=== PATIENT | female | born 1980 | race Caucasian/White ===

== ENCOUNTER 2020-12-30 08:59 | Day surgery (SDC) | payer BC, OTHER ==
[2020-12-30] VITALS (8 sets, daily range): BP systolic 113–129; BP diastolic 58–82
[~2020-12-30] VITALS: Ht 157.5 cm; Wt 82.2 kg
[2020-12-30] MEDS ORDERED: ZOLP10TA2 PO (09:09)
--- OUTSIDE RECORDS SUMMARY | 2020-12-30 09:14 | CCD ---
Author Author [facility] Organization [facility] Address Unknown Phone Unavailable Care Team Providers Care Lidder Name Role Phone Viktor'kaila, A Nimesh PA Unavailable Unavailable O'kaila, A Nimesh PA Unavailable Unavailable O'kaila, A Nimesh PA Unavailable Unavailable O'kaila, A Nimesh PA Unavailable Unavailable O'kaila, A Nimesh PA Unavailable Unavailable O'kaila, A Nimesh PA Unavailable Unavailable O'kaila, A Nimesh PA Unavailable Unavailable O'kaila, A Nimesh PA Unavailable Unavailable O'kaila, A Nimesh PA Unavailable Unavailable O'kaila, A Nimesh PA Unavailable Unavailable O'kaila, A Nimesh PA Unavailable Unavailable O'kaila, A Nimesh PA Unavailable Unavailable O'kaila, A Nimesh PA Unavailable Unavailable O'kaila, A Nimesh PA Unavailable Unavailable O'kaila, A Nimesh PA Unavailable Unavailable O'kaila, A Nimesh PA Unavailable Unavailable O'kaila, A Nimesh PA Unavailable Unavailable O'kaila, A Nimehs PA Unavailable Unavailable O'kaila, A Nimesh PA Unavailable Unavailable O'kaila, A Nimesh PA Unavailable Unavailable O'kaila, A Nimesh PA Unavailable Unavailable O'kaila, A Nimesh PA Unavailable Unavailable O'kaila, A Nimesh PA Unavailable Unavailable O'kaila, A Nimesh PA Unavailable Unavailable O'kaila, A Nimesh PA Unavailable Unavailable O'kaila, A Nimesh PA Unavailable Unavailable O'kaila, A Nimesh PA Unavailable Unavailable O'kaila, A Nimesh PA Unavailable Unavailable O'kaila, A Nimesh PA Unavailable Unavailable O'kaila, A Nimesh PA Unavailable Unavailable O'kaila, A Nimesh PA Unavailable Unavailable O'kaila, A Nimesh PA Unavailable Unavailable O'kaila, A Nimesh PA Unavailable Unavailable Re-disclosure Warning The records that you are about to access may contain information from federally-assisted alcohol or drug abuse programs. If such information is present, then the following federally mandated warning applies: This information has been disclosed to you from records protected by federal confidentiality rules (42 CFR part 2). The federal rules prohibit you from making any further disclosure of this information unless further disclosure is expressly permitted by the written consent of the person to whom it pertains or as otherwise permitted by 42 CFR part 2. A general authorization for the release of medical or other information is NOT sufficient for this purpose. The Federal rules restrict any use of the information to criminally investigate or prosecute any alcohol or drug abuse patient.The records that you are about to access may contain highly sensitive health information, the redisclosure of which is protected by Article 27-F of the [facility] Public Health law. If you continue you may have access to information: Regarding HIV / AIDS; Provided by facilities licensed or operated by the [facility] Office of Mental Health; or Provided by the [facility] Office for People With Developmental Disabilities. If such information is present, then the following [facility] mandated warning applies: This information has been disclosed to you from confidential records which are protected by state law. State law prohibits you from making any further disclosure of this information without the specific written consent of the person to whom it pertains, or as otherwise permitted by law. Any unauthorized further disclosure in violation of state law may result in a fine or fdc sentence or both. A general authorization for the release of medical or other information is NOT sufficient authorization for further disc losure. Family History Family Member Name Family Member Gender Family Member Status Date o f Status Description Data Source(s) Unknown Male Problem [facility] ([facility]) Unknown Unknown Problem [facility] ([facility]) Unknown Unknown Problem [facility] ([facility] Unknown Unknown Problem [facility] ([facility]) Unknown Unknown Problem [facility] ([facility]) Unknown Unknown Problem [facility] ([facility]) brother x 2 Unknown Male Encounters Encounter Providers Location Date Indications Data Source(s ) Outpatient Attender: Nimesh CHANG [facility] 07/10/2020 10:00:00 AM EDT MEDENT ([facility]) Outpatient Attender: Nimesh CHANG [facility] 04/02/2020 11:00:00 AM EDT MEDENT ([facility]) Outpatient Attender: Nimesh CHANG [facility] 03/18/2020 09:20:00 AM EDT MEDENT ([facility]) Outpatient Attender: Nimesh CHANG [facility] 02/19/2020 01:00:00 PM EDT MEDENT ([facility]) Medications Medication Brand Name Start Date Product Form Dose Route Admi nistrative Instructions Pharmacy Instructions Status Indications Reaction Description Data Source(s) 10 mg 12/05/2020 12:00:00 AM EST tablet 30 TAKE ONE TABLET BY MOUTH AT BEDTIME NEEDED TO HELP SLEEPING HABITS MAXIMUM DAILY DOSE = 1 TABLET TAKE ONE TABLET BY MOUTH AT BEDTIME NEEDED TO HELP SLEEPING HABITS MAXIMUM DAILY DOSE = 1 TABLET SOLD: 12/05/2020 [facility] 25 mg 12/03/2020 12:00:00 AM EST capsule,extended releas e 24hr 30 TAKE ONE CAPSULE BY MOUTH EVERY DAY. MAX DAILY DOSE= ONE CAPSULE TAKE ONE CAPSULE BY MOUTH EVERY DAY. MAX DAILY DOSE= ONE CAPSULE SOLD: 12/04/2020 [facility] 5 mg 12/03/2020 12:00:00 AM EST tablet 30 TAKE ONE TABLET BY MOUTH IN THE AFTERNOON BEFORE 3PM. MAX DAILY DOSE= ONE TABLET . [id number]:[id number] TAKE ONE TABLET BY MOUTH IN THE AFTERNOON BEFORE 3PM. MAX DAILY DOSE= ONE TABLET . [id number]:[id number] SOLD: 12/04/2020 [facility] 10 mg 11/03/2020 12:00:00 AM EST tablet 30 TAKE ONE TABLET BY MOUTH AT BEDTIME NEEDED TO HELP SLEEPING HABITS MAXIMUM DAILY DOSE = 1 TABLET TAKE ONE TABLET BY MOUTH AT BEDTIME NEEDED TO HELP SLEEPING HABITS MAXIMUM DAILY DOSE = 1 TABLET SOLD: 11/03/2020 [facility] 25 mg 11/03/2020 12:00:00 AM EST capsule,extended releas e 24hr 25 TAKE ONE CAPSULE BY MOUTH EVERY DAY MAXIMUM DAILY DOSE = 1 TABLET TAKE ONE CAPSULE BY MOUTH EVERY DAY MAXIMUM DAILY DOSE = 1 TABLET SOLD: 11/11/2020 [facility] 5 mg 11/03/2020 12:00:00 AM EST tablet 30 TAKE ONE TABLET BY MOUTH IN THE AFTERNOON. DO NOT TAKE AFTER 3PM MAXIMUM DAILY DOSE = 1 TAKE ONE TABLET BY MOUTH IN THE AFTERNOON. DO NOT TAKE AFTER 3PM MAXIMUM DAILY DOSE = 1 SOLD: 11/03/2020 [facility] 25 mg 09/30/2020 12:00:00 AM EST capsule,extended releas e 24hr 30 TAKE ONE CAPSULE BY MOUTH EVERY DAY MAXIMUM DAILY DOSE = 1 TABLETS TAKE ONE CAPSULE BY MOUTH EVERY DAY MAXIMUM DAILY DOSE = 1 TABLETS SOLD: 11/11/2020 [facility] 10 mg 09/30/2020 12:00:00 AM EST tablet 30 TAKE 1 TABLET BY MOUTH 1 HOUR BEFORE BEDTIME NEEDED TO HELP SLEEPING HABITS MAXIMUM DAILY DOSE = ONE TABLET TAKE 1 TABLET BY MOUTH 1 HOUR BEFORE BED TIME NEEDED TO HELP SLEEPING HABITS MAXIMUM DAILY DOSE = ONE TABLET SOLD: 10/02/2020 [facility] 5 mg 09/30/2020 12:00:00 AM EST tablet 30 TAKE ONE TABLET BY MOUTH EVERY AFTERNOON, DO NOT TAKE AFTER 3:00PM MAXIMUM DAILY DOSE = 1 TABLET TAKE ONE TABLET BY MOUTH EVERY AFTERNOON, DO NOT TAKE AFTER 3:00PM MAXIMUM DAILY DOSE = 1 TABLET SOLD: 10/02/2020 [facility] 10 mg 08/29/2020 12:00:00 AM EDT tablet 30 TAKE 1 TABLET BY MOUTH 1 HOUR BEFORE BEDTIME NEEDED TO HELP SLEEPING HABITS MAXIMUM DAILY DOSE = 1 TABLET TAKE 1 TABLET BY MOUTH 1 HOUR BEFORE BEDTIME NEEDED TO HELP SLEEPING HABITS MAXIMUM DAILY DOSE = 1 TABLET SOLD: 08/31/2020 [facility] 25 mg 08/29/2020 12:00:00 AM EDT capsule,extended releas e 24hr 28 TAKE ONE CAPSULE BY MOUTH EVERY DAY MAXIMUM DAILY DOSE = 1 CAPSULE TAKE ONE CAPSULE BY MOUTH EVERY DAY MAXIMUM DAILY DOSE = 1 CAPSULE SOLD: 09/04/2020 [facility] 5 mg 08/29/2020 12:00:00 AM EDT tablet 30 TAKE 1 TABLET BY MOUTH IN THE AFTERNOON, DO NOT TAKE AFTER 3:00PM MAXIMUM DAILY DOSE = 1 TABLET TAKE 1 TABLET BY MOUTH IN THE AFTERNOON, DO NOT TAKE AFTER 3:00PM MAXIMUM DAILY DOSE = 1 TABLET SOLD: 08/31/2020 [facility] 10 mg 08/02/2020 12:00:00 AM EDT tablet 30 TAKE 1 TABLET BY MOUTH 1 HOUR BEFORE AT BEDTIME NEEDED TO HELP SLEEPING HABITS MAXIMUM DAILY DOSE = 1 TABLET TAKE 1 TABLET BY MOUTH 1 HOUR BEFORE AT BEDTIME NEEDED TO HELP SLEEPING HABITS MAXIMUM DAILY DOSE = 1 TABLET SOLD: 08/04/2020 [facility] 25 mg 08/01/2020 12:00:00 AM EDT capsule,extended releas e 24hr 30 TAKE ONE CAPSULE BY MOUTH EVERY DAY MAXIMUM DAILY DOSE = 1 CAPSULE TAKE ONE CAPSULE BY MOUTH EVERY DAY MAXIMUM DAILY DOSE = 1 CAPSULE SOLD: 08/01/2020 [facility] 5 mg 08/01/2020 12:00:00 AM EDT tablet 30 TAKE 1 TABLET BY MOUTH DAILY IN THE AFTERNOON - DO NOT TAKE AFTER 3:00PM MAXIMUM DAILY DOSE = 1 TABLET TAKE 1 TABLET BY MOUTH DAILY IN THE AFTERNOON - DO NOT TAKE AFTER 3:00PM MAXIMUM DAILY DOSE = 1 TABLET SOLD: 08/01/2020 [facility] Xh[facility] Xhance 07/18/2020 12:00:00 AM EDT active MEDENT ([facility], ) 93 mcg/actuation 07/18/2020 12:00:00 AM EDT aerosol breath a ctivated 16 USE 2 SPRAYS IN EACH NOSTRIL ONCE DAILY USE 2 SPRAYS IN EACH NOSTRIL ONCE DAILY SOLD: 07/20/2020 [facility] 37.5 mg 07/10/2020 12:00:00 AM EDT capsule,extended releas e 24hr 90 TAKE ONE CAPSULE BY MOUTH EVERY DAY TAKE ONE CAPSULE BY MOUTH EVERY DAY SOLD: 07/20/2020 [facility] cetirizine hydrochloride 10 MG Oral Tablet [Zyrtec] Zyrtec A llergy 07/10/2020 12:00:00 AM EDT ORAL active M EDENT ([facility]) 25 mg 07/04/2020 12:00:00 AM EDT capsule,extended releas e 24hr 30 TAKE ONE CAPSULE BY MOUTH EVERY DAY MAXIMUM DAILY DOSE = 1 CAPSULE TAKE ONE CAPSULE BY MOUTH EVERY DAY MAXIMUM DAILY DOSE = 1 CAPSULE SOLD: 07/04/2020 [facility] 5 mg 07/04/2020 12:00:00 AM EDT tablet 30 TAKE 1 TABLET BY MOUTH IN THE AFTERNOON DO NOT TAKE AFTER 3PM MAXIMUM DAILY DOSE = ONE TABLET TAKE 1 TABLET BY MOUTH IN THE AFTERNOON DO NOT TAKE AFTER 3PM MAXIMUM DAILY DOSE = ONE TABLET SOLD: 07/04/2020 [facility] 10 mg 07/04/2020 12:00:00 AM EDT tablet 30 TAKE 1 TABLET BY MOUTH 1 HOUR BEFORE BEDTIME NEEDED TO HELP SLEEPING HABITS MAXIMUM DAILY DOSE = ONE TABLET TAKE 1 TABLET BY MOUTH 1 HOUR BEFORE BED TIME NEEDED TO HELP SLEEPING HABITS MAXIMUM DAILY DOSE = ONE TABLET SOLD: 07/04/2020 [facility] 1 mg 05/30/2020 12:00:00 AM EDT tablet 56 TAKE ONE TABLET BY MOUTH TWICE A DAY TAKE ONE TABLET BY MOUTH TWICE A DAY SOLD: 06/02/2020 [facility] 10 mg 05/30/2020 12:00:00 AM EDT tablet 30 TAKE ONE TABLET BY MOUTH EVERY DAY 1 HOUR BEFORE BEDTIME MAXIMUM DAILY DOSE = ONE TABLET TAKE ONE TABLET BY MOUTH EVERY DAY 1 HOUR BEFORE BEDTIME MAXIMUM DAILY DOSE = ONE TABLET SOLD: 06/02/2020 [facility] 5 mg 05/30/2020 12:00:00 AM EDT tablet 30 TAKE ONE TABLET BY MOUTH EVERY DAY IN THE AFTERNOON BEFORE 3:00PM MAXIMUM DAILY DOSE = ONE TABLET TAKE ONE TABLET BY MOUTH EVERY DAY IN THE AFTERNOON BEFORE 3:00PM MAXIMUM DAILY DOSE = ONE TABLET SOLD: 06/02/2020 [facility] 25 mg 05/30/2020 12:00:00 AM EDT capsule,extended releas e 24hr 30 TAKE ONE CAPSULE BY MOUTH EVERY DAY MAXIMUM DAILY DOSE = 1 CAPSULE TAKE ONE CAPSULE BY MOUTH EVERY DAY MAXIMUM DAILY DOSE = 1 CAPSULE SOLD: 06/02/2020 [facility] 10 mg 05/02/2020 12:00:00 AM EDT tablet 30 TAKE 1 TABLET BY MOUTH 1 HOUR BEFORE BEDTIME NEEDED TO HELP SLEEPING HABITS MAXIMUM DAILY DOSE = 1 TABLET TAKE 1 TABLET BY MOUTH 1 HOUR BEFORE BEDTIME NEEDED TO HELP SLEEPING HABITS MAXIMUM DAILY DOSE = 1 TABLET SOLD: 05/02/2020 [facility] 5 mg 05/01/2020 12:00:00 AM EDT tablet 30 TAKE 1 TABLET BY MOUTH EVERY AFTER NOON DO NOT TAKE AFTER 3PM MAXIMUM DAILY DOSE = 1 TABLET TAKE 1 TABLET BY MOUTH EVERY AFTER NOON DO NOT TAKE AFTER 3PM MAXIMUM DAILY DOSE = 1 TABLET SOLD: 05/02/2020 [facility] 25 mg 05/01/2020 12:00:00 AM EDT capsule,extended releas e 24hr 30 TAKE ONE CAPSULE BY MOUTH EVERY DAY MAXIMUM DAILY DOSE = 1 CAPSULE TAKE ONE CAPSULE BY MOUTH EVERY DAY MAXIMUM DAILY DOSE = 1 CAPSULE SOLD: 05/02/2020 [facility] 24 HR Amphetamine aspartate 6.25 MG / Am phetamine Sulfate 6.25 MG / Dextroamphetamine saccharate 6.25 MG / Dextroamphetamine Sulfate 6.25 MG Extended Release Oral Capsule [Adderall] Adderall XR 04/02/2020 12:00:00 AM EDT ORAL active MEDENT ( [facility]) 25 mg 04/02/2020 12:00:00 AM EDT capsule,extended releas e 24hr 30 TAKE ONE CAPSULE BY MOUTH EVERY DAY MAXIMUM DAILY DOSE = 1 CAPSULE TAKE ONE CAPSULE BY MOUTH EVERY DAY MAXIMUM DAILY DOSE = 1 CAPSULE SOLD: 04/05/2020 [facility] Doxycycline Monohydrate 100 MG Oral Tablet Doxycycline Monoh ydrate 03/28/2020 12:00:00 AM EDT ORAL completed MED[facility] ([facility]) 100 mg 03/28/2020 12:00:00 AM EDT tablet 20 TAKE ONE TABLET BY MOUTH TWICE A DAY UNTIL GONE TAKE ONE TABLET BY MOUTH TWICE A DAY UNTIL GONE SOLD: 03/28/2020 [facility] cefdinir 300 MG Oral Capsule Cefdinir 03/26/2020 12:00:00 AM EDT ORAL completed [facility] ([facility]) 10 mg 03/26/2020 12:00:00 AM EDT tablet 30 TAKE ONE TABLET BY MOUTH ONE HOUR BEFORE BEDTIME NEEDED TO HELP SLEEPING MAXIMUM DAILY DOSE = 1 TABLET TAKE ONE TABLET BY MOUTH ONE HOUR BEFORE BEDTIME NEEDED TO HELP SLEEPING MAXIMUM DAILY DOSE = 1 TABLET SOLD: 03/27/2020 [facility] 1 mg 03/18/2020 12:00:00 AM EDT tablet 56 TAKE ONE TABLET BY MOUTH TWICE A DAY TAKE ONE TABLET BY MOUTH TWICE A DAY SOLD: 03/18/2020 [facility] 12 HR cetirizine hydrochloride 5 MG / Ps eudoephedrine Hydrochloride 120 MG Extended Release Oral Tablet [Zyrtec-D] Zyrtec-D Allergy & Congestion 03/18/2020 12:00:00 AM EDT ORAL completed MED[facility] ([facility]) Fluticasone Propionate Fluticasone Propionate 03/18/2020 12:00:00 AM E DT active MEDENT ([facility]) [employer] Jaswant Chant[employer] Jaswant 12:00:00 AM EDT ORAL active [facility] ([facility]) 5-120 mg 03/18/2020 12:00:00 AM EDT tablet extended release 12 hr 20 TAKE ONE TABLET BY MOUTH EVERY 12 HOURS TAKE ONE TABLET BY MOUTH EVERY 12 HOURS SOLD: 03/18/2020 [facility] 50 mcg/actuation 03/18/2020 12:00:00 AM EDT spray,suspension 16 SPRAY TWO SPRAYS IN EACH NOSTRIL EVERY DAY SPRAY TWO SPRAYS IN EACH NOSTRIL EVERY DAY SOLD: 03/18/2020 [facility] 20 mg 03/17/2020 12:00:00 AM EDT capsule,extended releas e 24hr 30 TAKE ONE CAPSULE BY MOUTH EVERY DAY MAXIMUM DAILY DOSE = 1 TAKE ONE CAPSULE BY MOUTH EVERY DAY MAXIMUM DAILY DOSE = 1 SOLD: 03/18/2020 [facility] 5 mg 03/17/2020 12:00:00 AM EDT tablet 30 TAKE ONE TABLET BY MOUTH EVERY DAY AFTERNOON BY 3PM MAXIMUM DAILY DOSE = 1 TAKE ONE TABLET BY MOUTH EVERY DAY AFTERNOON BY 3PM MAXIMUM DAILY DOSE = 1 SOLD: 03/18/2020 [facility] Triamcinolone Acetonide 1 MG/ML Topical Cream Triamcinolone Acetonide 02/19/2020 12:00:00 AM EDT active MED[facility] ([facility]) 0.1 % 02/19/2020 12:00:00 AM EDT cream 80 APPLY LEAST EFFECTIVE DOSAGE TO AFFECTED AREA ON BILATERAL HANDS TWO TIMES A DAY APPLY LEAST EFFECTIVE DOSAGE TO AFFECTED AREA ON BILATERAL HANDS TWO TIMES A DAY SOLD: 02/19/2020 [facility] 20 mg 02/18/2020 12:00:00 AM EDT capsule,extended releas e 24hr 30 TAKE ONE CAPSULE BY MOUTH EVERY DAY MAXIMUM DAILY DOSE = 1 TAKE ONE CAPSULE BY MOUTH EVERY DAY MAXIMUM DAILY DOSE = 1 SOLD: 02/18/2020 [facility] 5 mg 02/18/2020 12:00:00 AM EDT tablet 30 TAKE ONE TABLET BY MOUTH EVERY DAY BETWEEN NOON AND 3 "PM" MAXIMUM DAILY DOSE = 1 TAKE ONE TABLET BY MOUTH EVERY DAY BETWEEN NOON AND 3 "PM" MAXIMUM DAILY DOSE = 1 SOLD: 02/18/2020 [facility] 10 mg 01/28/2020 12:00:00 AM EDT tablet 30 TAKE ONE TABLET BY MOUTH 1 HOUR BEFORE BEDTIME NEEDED FOR SLEEP MAXIMUM DAILY DOSE = 1 TABLET TAKE ONE TABLET BY MOUTH 1 HOUR BEFORE BEDTIME NEEDED FOR SLEEP MAXIMUM DAILY DOSE = 1 TABLET SOLD: 01/30/2020 [facility] 5 mg 01/21/2020 12:00:00 AM EDT tablet 30 TAKE 1 TABLET BY MOUTH EVERY AFTERNOON MAXIMUM DAILY DOSE = 1 TABLET TAKE 1 TABLET BY MOUTH EVERY AFTERNOON MAXIMUM DAILY DOSE = 1 TABLET SOLD: 01/21/2020 [facility] 20 mg 01/21/2020 12:00:00 AM EDT capsule,extended releas e 24hr 30 TAKE ONE CAPSULE BY MOUTH EVERY DAY MAXIMUM DAILY DOSE = 1 CAPSULE TAKE ONE CAPSULE BY MOUTH EVERY DAY MAXIMUM DAILY DOSE = 1 CAPSULE SOLD: 01/21/2020 [facility] 10 mg 01/01/2020 12:00:00 AM EST tablet 30 ONE TABLET BY MOUTH ONE HOUR BEFORE BEDTIME NEEDED TO HELP WITH SLEEPING MAXIMUM DAILY DOSE = ONE TABLET ONE TABLET BY MOUTH ONE HOUR BEFORE BEDTIME NEEDED TO HELP WITH SLEEPING MAXIMUM DAILY DOSE = ONE TABLET SOLD: 01/01/2020 [facility] 20 mg 12/14/2019 12:00:00 AM EST capsule,extended releas e 24hr 30 TAKE ONE CAPSULE BY MOUTH EVERY DAY MAXIMUM DAILY DOSE = 1 CAPSULE TAKE ONE CAPSULE BY MOUTH EVERY DAY MAXIMUM DAILY DOSE = 1 CAPSULE SOLD: 12/16/2019 [facility] 5 mg 12/14/2019 12:00:00 AM EST tablet 30 TAKE ONE TABLET BY MOUTH EVERY DAY (AFTERNOON NOT AFTER 3PM) MAXIMUM DAILY DOSE = 1 TABLET TAKE ONE TABLET BY MOUTH EVERY DAY (AFTERNOON NOT AFTER 3PM) MAXIMUM DAILY DOSE = 1 TABLET SOLD: 12/16/2019 [facility] 10 mg 11/21/2019 12:00:00 AM EST tablet 30 TAKE 1 TABLET BY MOUTH 1 HOUR BEFORE AT BEDTIME NEEDED TO HELP SLEEPING MAXIMUM DAILY DOSE = 1 TAKE 1 TABLET BY MOUTH 1 HOUR BEFORE AT BEDTIME NEEDED TO HELP SLEEPING MAXIMUM DAILY DOSE = 1 SOLD: 11/27/2019 [facility] 20 mg 11/12/2019 12:00:00 AM EST capsule,extended releas e 24hr 30 TAKE ONE CAPSULE BY MOUTH EVERY DAY MAXIMUM DAILY DOSE = 1 TAKE ONE CAPSULE BY MOUTH EVERY DAY MAXIMUM DAILY DOSE = 1 SOLD: 11/15/2019 [facility] 5 mg 11/12/2019 12:00:00 AM EST tablet 30 TAKE 1 TABLET BY MOUTH IN AFTERNOON BEFORE 3 IN THE EVENING MAXIMUM DAILY DOSE = 1 TAKE 1 TABLET BY MOUTH IN AFTERNOON BEFORE 3 IN THE EVENING MAXIMUM DAILY DOSE = 1 SOLD: 11/15/2019 [facility] Insurance Providers Payer name Policy type / Coverage type Policy ID Covered constitution party ID Covered constitution party's relationship to mckinley Policy [place] Plan Information [employer] [place] PPO 302/307 [id number] Melvin Plan Commercial [id number] Family Dependent [id number] Melvin Plan Commercial [id number] Family Dependent [id number] EMPIRE PLAN [facility] U [id number] Spouse [id number] Melvin Plan Commercial [id number] Family Dependent [id number] Melvin Plan Commercial [id number] Family Dependent [id number] Melvin Plan Commercial [id number] Family Dependent [id number] [facility] Melvin Commercial [id number] Family Depende nt [id number] EXCELLUS BCBS B [id number] P VYS [id number] BCBS/Excellus Commercial Family Dependent Excellus Blue Ppo Health Maintenance Organization (HMO) Family Dependent [employer] [place] [employer] Part B Self BS [place] Trad/MX Commercial Family Dependent BCBS [facility] [phone] [id number] DA [id number] EXCELLUS BCBS P [id number] S B [id number] [employer]BS [place] PPO 302/307 [id number] SP [id number] Social History Code Duration Value Status Description Data Source(s ) Smoking 04/02/2020 12:00:00 AM EDT Patient is a former smoker completed Patient is a former smoker [facility] ([facility]) Vital Signs ID Date Data Source UNK Name Value Range Interpretation Code Description Data Source(s) Body weight 77.112 kg 77.112 kg SAWYER ([facility], ) Body mass index (BMI) [Ratio] 31.1 kg/m2 31.1 k g/m2 SAWYER ([facility], ) Body weight 170.00 [lb_av] 170.00 [lb_av] JUANEN T ([facility], ) Body height 62 [in_i] 62 [in_i] [facility] 5'2" Oxygen saturation in Arterial blood by Pulse oximetry 100 % 100 % MED[facility] ([facility]) Body temperature 98.5 [degF] 98.5 [degF] MED[facility] ([facility]) Respiratory rate 16 /min 16 /min MED[facility] ( [facility]) Heart rate 95 /min 95 /min [facility] ([facility]) Body mass index (BMI) [Ratio] 32.6 kg/m2 32.6 k g/m2 MED[facility] ([facility]) Body weight 178.50 [lb_av] 178.50 [lb_av] MEDEN T ([facility]) Body height 62.0 [in_i] 62.0 [in_i] [facility] ([facility] 5'2" Diastolic blood pressure 80 mm[Hg] 80 mm[Hg] MEDENT ([facility]) Systolic blood pressure 118 mm[Hg] 118 mm[Hg] M EDENT ([facility]) Oxygen saturation in Arterial blood by Pulse oximetry 98 % 98 % MED[facility] ([facility]) Body temperature 98.1 [degF] 98.1 [degF] MED[facility] ([facility]) Respiratory rate 16 /min 16 /min MED[facility] ( [facility]) Heart rate 80 /min 80 /min [facility] ([facility]) Body mass index (BMI) [Ratio] 32.6 kg/m2 32.6 k g/m2 MED[facility] ([facility]) Body weight 178.12 [lb_av] 178.12 [lb_av] MEDEN T ([facility]) Body height 62.0 [in_i] 62.0 [in_i] MED[facility] ([facility]) 5'2" Diastolic blood pressure 86 mm[Hg] 86 mm[Hg] MEDENT ([facility]) Systolic blood pressure 132 mm[Hg] 132 mm[Hg] M EDENT ([facility]) Oxygen saturation in Arterial blood by Pulse oximetry 96 % 96 % MED[facility] ([facility]) Body temperature 98.5 [degF] 98.5 [degF] MEDDANIELE ([facility]) Respiratory rate 18 /min 18 /min [facility] ( [facility]) Heart rate 93 /min 93 /min [facility] ([facility]) Body mass index (BMI) [Ratio] 33.3 kg/m2 33.3 k g/m2 SAWYER ([facility]) Body weight 182.12 [lb_av] 182.12 [lb_av] GABY T ([facility]) Body height 62.0 [in_i] 62.0 [in_i] SAWYER ([facility]) 5'2" Diastolic blood pressure 72 mm[Hg] 72 mm[Hg] SAWYER ([facility]) Systolic blood pressure 120 mm[Hg] 120 mm[Hg] Durga KELLY ([facility])
[2020-12-30] MEDS ORDERED: ONDANSETRON 4MG/2ML VIAL IV ONE (09:30)
[2020-12-30] MEDS ORDERED: NS 1,000 ML IV ONE (09:30)
[2020-12-30] MEDS ORDERED: KETOROLAC 30 MG/ML 1ML VIAL IV ONE (09:30)
[2020-12-30 09:41] LABS: BASO % 0.2 % (0.0-1.0); EOS % 0.1 % (0.0-3.0); HEMATOCRIT 44.8 % (36.0-47.0); HEMOGLOBIN 14.9 g/dl (12.0-15.5); LYMPH # 1.1 10^3/uL (1.5-5.0); LYMPH % 6.6 % (24.0-44.0); MEAN CORPUSCULAR HEMOGLOBIN 30.2 pg (27.0-33.0); MEAN CORPUSCULAR HGB CONC 33.3 g/dl (32.0-36.5); MEAN CORPUSCULAR VOLUME 90.7 fl (80.0-96.0); MONO # 0.6 10^3/uL (0.0-0.8); MONO % 3.8 % (2.0-8.0); NEUTROPHILS # 14.7 10^3/uL (1.5-8.5); PLATELET COUNT, AUTOMATED 327 10^3/uL (150-450); RED BLOOD COUNT 4.94 10^6/uL (4.00-5.40); WHITE BLOOD COUNT 16.5 10^3/uL (4.0-10.0)
--- OUTSIDE RECORDS SUMMARY | 2020-12-30 09:43 | CCD ---
Author Author [facility] Organization [facility] Address Unknown Phone Unavailable Care Team Providers Care Chief Of Anesthesiology Name Role Phone Viktor'kaila, A Nimesh PA Unavailable Unavailable O'kaila, A Nimesh PA Unavailable Unavailable O'kaila, A Nimesh PA Unavailable Unavailable O'kaila, A Nimesh PA Unavailable Unavailable O'kaila, A Nimesh PA Unavailable Unavailable O'kaila, A Nimesh PA Unavailable Unavailable O'kaila, A Nimesh PA Unavailable Unavailable O'kaila, A Nimesh PA Unavailable Unavailable O'kalia, A Nimesh PA Unavailable Unavailable O'kaila, A [...] is protected by Article 27-F of the [facility] Public Health law. If you continue you may have access to information: Regarding HIV / AIDS; Provided by facilities licensed or operated by the [facility] Office of Mental Health; or Provided by the [facility] Office for People With Developmental Disabilities. If such information is present, then the following [facility] mandated warning applies: This information has been [...] law may result in a fine or assisted sentence or both. A general authorization for the release of medical or other information is NOT sufficient authorization for further disc losure. Family History Family Member Name Family Member Gender Family Member Status Date o f Status Description Data Source(s) Unknown Male Problem [facility] ([facility]) Unknown Unknown Problem [facility] ([facility]) Unknown Unknown Problem [facility] ([facility]) Unknown Unknown Problem [facility] ([facility]) Unknown Unknown Problem [facility] ([facility]) Unknown Unknown Problem [facility] ([facility]) brother x 2 Unknown Male Encounters Encounter Providers Location Date Indications Data Source(s ) Outpatient Attender: Nimesh CHANG [facility] 07/10/2020 10:00:00 AM EDT [facility] ([facility]) Outpatient Attender: Nimesh CHANG [facility] 04/02/2020 11:00:00 AM EDT [facility] ([facility]) Outpatient Attender: Nimesh CHANG [facility] 03/18/2020 09:20:00 AM EDT [facility] ([facility]) Outpatient Attender: Nimesh CHANG [facility] 02/19/2020 01:00:00 PM EDT [facility] ([facility]) Medications Medication Brand Name Start Date Product [...] 3PM. MAX DAILY DOSE= ONE TABLET . [id number] TAKE ONE TABLET BY MOUTH IN THE AFTERNOON BEFORE 3PM. MAX DAILY DOSE= ONE TABLET . [id number]:[id number] SOLD: 12/04/2020 [facility] 10 mg [...] DOSE = 1 TABLET SOLD: 08/01/2020 [facility] Xhance Xhance 07/18/2020 12:00:00 AM EDT active MEDENT ([facility], ) 93 mcg/actuation 07/18/2020 12:00:00 AM [...] 12:00:00 AM EDT ORAL active M EDENT ([facility]) 25 mg 07/04/2020 12:00:00 AM EDT capsule,extended [...] DAILY DOSE = 1 CAPSULE SOLD: 05/02/2020 [facility] 24 HR Amphetamine aspartate 6.25 MG / Am phetamine Sulfate 6.25 MG / Dextroamphetamine saccharate 6.25 MG / Dextroamphetamine Sulfate 6.25 MG Extended Release Oral Capsule [Adderall] Adderall XR 04/02/2020 12:00:00 AM EDT ORAL active MED[facility] ( [facility]) 25 mg 04/02/2020 12:00:00 AM EDT capsule,extended releas e 24hr 30 TAKE ONE CAPSULE BY MOUTH EVERY DAY MAXIMUM DAILY DOSE = 1 CAPSULE TAKE ONE CAPSULE BY MOUTH EVERY DAY MAXIMUM DAILY DOSE = 1 CAPSULE SOLD: 04/05/2020 [facility] Doxycycline Monohydrate 100 MG Oral Tablet Doxycycline Monoh ydrate 03/28/2020 12:00:00 AM EDT ORAL completed [facility] ([facility]) 100 mg 03/28/2020 12:00:00 AM EDT tablet 20 TAKE ONE TABLET BY MOUTH TWICE A DAY UNTIL GONE TAKE ONE TABLET BY MOUTH TWICE A DAY UNTIL GONE SOLD: 03/28/2020 [facility] cefdinir 300 MG Oral Capsule Cefdinir 03/26/2020 12:00:00 AM EDT ORAL completed MED[facility] ([facility]) 10 mg 03/26/2020 12:00:00 AM EDT tablet [...] BY MOUTH TWICE A DAY SOLD: 03/18/2020 [facility] 12 HR cetirizine hydrochloride 5 MG / Ps eudoephedrine Hydrochloride 120 MG Extended Release Oral Tablet [Zyrtec-D] Zyrtec-D [facility] 03/18/2020 12:00:00 AM EDT ORAL completed [facility] ([facility]) Fluticasone Propionate Fluticasone Propionate 03/18/2020 12:00:00 AM E DT active MEDENT ([facility]) Chantix Continuing Month Jaswant Chantix Continuing Month Jaswant 12:00:00 AM EDT ORAL active MED[facility] ([facility]) 5-120 mg 03/18/2020 12:00:00 AM EDT tablet [...] Acetonide 02/19/2020 12:00:00 AM EDT active MED[facility] ([facility]) 0.1 % 02/19/2020 12:00:00 AM EDT cream [...] DAILY DOSE = 1 TABLET SOLD: 01/21/2020 [facility] 20 mg 01/21/2020 12:00:00 AM EDT [...] DAILY DOSE = 1 TABLET SOLD: 12/16/2019 [facility] 10 mg 11/21/2019 12:00:00 AM EST [...] Plan Information [place] P[place] 302/307 [id number] HU2 [id number] BCBS EMPIRE PENDING SALE TO [facility] 303/803 [id number] DA [id number] [place] Plan Commercial [id number] Family Dependent [id number] [place] Plan Commercial [id number] Family Dependent [id number] EMPIRE PLAN [facility] U [id number] Spouse [id number] [place] Plan Commercial [id number] Family Dependent [id number] [place] Plan Commercial [id number] Family Dependent [id number] [place] Plan Commercial [id number] Family Dependent [id number] [facility] [place] Commercial [id number] Family Depende nt [id number] EXCELLUS BCBS B [id number] P VYS [id number] BCBS/Excellus Commercial Family Dependent Excellus Blue Ppo Health Maintenance Organization (HMO) Family Dependent Horizon BS [facility] Part B Self BS [place] Trad/MX Commercial Family Dependent EXCELLUS BCBS P [id number] S B [id number] BCBS [place] PPO 302/307 [id number] SP [id number] Social History Code Duration Value Status Description Data Source(s ) Smoking 04/02/2020 12:00:00 AM EDT Patient is a former smoker completed Patient is a former smoker [facility] ([facility]) Vital Signs ID Date Data Source UNK Name Value Range Interpretation Code Description Data Source(s) Body weight 77.112 kg 77.112 kg [facility] ([facility], ) Body mass index (BMI) [Ratio] 31.1 kg/m2 31.1 k g/m2 [facility] ([facility], ) Body weight 170.00 [lb_av] 170.00 [lb_av] [facility] T ([facility], ) Body height 62 [in_i] 62 [in_i] [facility] 5'2" Oxygen saturation in Arterial blood by Pulse oximetry 100 % 100 % [facility] ([facility]) Body temperature 98.5 [degF] 98.5 [degF] [facility] ([facility]) Respiratory rate 16 /min 16 /min [facility] ( [facility]) Heart rate 95 /min 95 /min [facility] ([facility]) Body mass index (BMI) [Ratio] 32.6 kg/m2 32.6 k g/m2 [facility] ([facility]) Body weight 178.50 [lb_av] 178.50 [lb_av] MEDEN T ([facility]) Body height 62.0 [in_i] 62.0 [in_i] [facility] ([facility]) 5'2" Diastolic blood pressure 80 mm[Hg] 80 mm[Hg] [facility] ([facility]) Systolic blood pressure 118 mm[Hg] 118 mm[Hg] M EDENT ([facility]) Oxygen saturation in Arterial blood by Pulse oximetry 98 % 98 % [facility] ([facility]) Body temperature 98.1 [degF] 98.1 [degF] [facility] ([facility]) Respiratory rate 16 /min 16 /min [facility] ( [facility]) Heart rate 80 /min 80 /min [facility] ([facility]) Body mass index (BMI) [Ratio] 32.6 kg/m2 32.6 k g/m2 [facility] ([facility]) Body weight 178.12 [lb_av] 178.12 [lb_av] MEDEN T ([facility]) Body height 62.0 [in_i] 62.0 [in_i] [facility] ([facility]) 5'2" Diastolic blood pressure 86 mm[Hg] 86 mm[Hg] [facility] ([facility]) Systolic blood pressure 132 mm[Hg] 132 mm[Hg] M EDENT ([facility]) Oxygen saturation in Arterial blood by Pulse oximetry 96 % 96 % [facility] ([facility]) Body temperature 98.5 [degF] 98.5 [degF] [facility] ([facility]) Respiratory rate 18 /min 18 /min [facility] ( [facility]) Heart rate 93 /min 93 /min [facility] ([facility]) Body mass index (BMI) [Ratio] 33.3 kg/m2 33.3 k g/m2 [facility] ([facility]) Body weight 182.12 [lb_av] 182.12 [lb_av] GABY T ([facility]) Body height 62.0 [in_i] 62.0 [in_i] [facility] ([facility]) 5'2" Diastolic blood pressure 72 mm[Hg] 72 mm[Hg] [facility] ([facility]) Systolic blood pressure 120 mm[Hg] 120 mm[Hg] Durga KELLY ([facility])
[2020-12-30 10:11] LABS: ALBUMIN 4.2 GM/DL (3.2-5.2); ALT/SGPT 35 U/L (12-78); BILIRUBIN,DIRECT 0.1 MG/DL (0.0-0.2); BILIRUBIN,TOTAL 0.8 MG/DL (0.2-1.0); BLOOD UREA NITROGEN 8 MG/DL (7-18); CALCIUM LEVEL 9.1 MG/DL (8.5-10.1); CARBON DIOXIDE LEVEL 30 MEQ/L (21-32); CHLORIDE LEVEL 102 MEQ/L (98-107); CREATININE FOR GFR 0.59 MG/DL (0.55-1.30); GLOMERULAR FILTRATION RATE > 60.0 (>58); GLUCOSE, FASTING 127 MG/DL (70-100); LIPASE 110 U/L (73-393); POTASSIUM SERUM 3.6 MEQ/L (3.5-5.1); SODIUM LEVEL 137 MEQ/L (136-145); TOTAL PROTEIN 7.8 GM/DL (6.4-8.2)
[2020-12-30] MEDS ORDERED: ISOVUE-370 76% 100ML VIAL As Ordered ONE (10:39)
--- NOTE | 2020-12-30 11:09 | REP ---
INDICATION: rlq pain. COMPARISON: 07/07/2015 TECHNIQUE: Axial contrast-enhanced images from the lung bases to the pubic symphysis using 100 cc Isovue 370 intravenous contrast material. Coronal and sagittal reformations obtained.. This CT examination was performed using the following dose reduction techniques: Automated exposure control, adjustment of mA and/or kv according to the patient's size, and the use of iterative reconstruction technique. FINDINGS: The appendix is thickened and measures approximately 13 mm maximal diameter with mild periappendiceal stranding suggesting early acute appendicitis. No significant free fluid or free air to suggest perforation. Remainder of the small and large bowel is unremarkable and there is no evidence for obstruction. Scattered sigmoid diverticula noted without acute diverticulitis. Liver, spleen, pancreas, gallbladder, bilateral adrenal glands and kidneys are normal. Few scattered renal hypodensities are most compatible with cysts measuring up to 1.2 cm. Pelvis demonstrates normal bladder and evidence for prior hysterectomy. No pelvic fluid or ascites. No free air. No significant adenopathy. Abdominal aorta and vasculature normal. Musculoskeletal structures intact and without acute osseous abnormality. IMPRESSION: Findings compatible with early acute appendicitis. No drainable collection/abscess, perforation or bowel obstruction. <Electronically signed by Grey Shaw > 12/30/20 [id number]
[2020-12-30] MEDS ORDERED: ADDE25CA PO (11:29)
[2020-12-30] MEDS ORDERED: ADDE1TAB14 PO (11:29)
[2020-12-30] MEDS ORDERED: NORCO, ANEXSIA 5/325MG TABLET (HYDROcodone/ACETAMINOPHEN) PO PRN (11:30)
[2020-12-30] MEDS ORDERED: ACETAMINOPHEN TAB 650MG DOSE (2X325MG) PO PRN (11:30)
[2020-12-30] MEDS ORDERED: metroNIDAZOLE 500 MG in IV 1 EA IV ONE (11:30)
[2020-12-30] MEDS ORDERED: CIPROFLOXACIN 400 MG in IV 1 EA IV ONE (11:30)
--- OUTSIDE RECORDS SUMMARY | 2020-12-30 11:31 | CCD ---
Author Author [facility] Organization [facility] Address Unknown Phone Unavailable Care Team Providers Care Transit Survey Worker Name Role Phone Viktor'kaila, A Nimesh PA [...] is protected by Article 27-F of the [facility] Public Health law. If you continue you may have access to information: Regarding HIV / AIDS; Provided by facilities licensed or operated by the [facility] Office of Mental Health; or Provided by the [facility] Office for People With Developmental Disabilities. If such information is present, then the following [facility] mandated warning applies: This information has been [...] law may result in a fine or [place] [facility] [place] sentence or both. A general authorization for the release of medical or other information is NOT sufficient authorization for further disc losure. Family History Family Member Name Family Member Gender Family Member Status Date o f Status Description Data Source(s) Unknown Male Problem [facility] ([facility]) Unknown Unknown Problem [facility] ([facility]) Unknown Unknown Problem [facility] ([facility]) Unknown Unknown Problem [facility] ([facility]) Unknown Unknown Problem [facility] ([facility]) Unknown Unknown Problem [facility] ([facility]) brother x 2 Unknown Male Encounters Encounter Providers Location Date Indications Data Source(s ) Outpatient Attender: Nimesh CHANG [facility] 07/10/2020 10:00:00 AM EDT [facility] ([facility]) Outpatient Attender: Nimesh CHANG [facility] 04/02/2020 11:00:00 AM EDT [facility] ([facility]) Outpatient Attender: Nimesh CHANG [facility] 03/18/2020 09:20:00 AM EDT [facility] ([facility]) Outpatient Attender: Nimesh CHANG [facility] 02/19/2020 01:00:00 PM EDT [facility] ([facility]) Medications Medication Brand Name Start Date Product [...] 3PM. MAX DAILY DOSE= ONE TABLET . [id number]:[id number] TAKE ONE TABLET BY MOUTH IN THE AFTERNOON BEFORE 3PM. MAX DAILY DOSE= ONE TABLET . ISTOP:[id number] SOLD: 12/04/2020 [facility] 10 mg [...] DAILY DOSE = 1 TABLET SOLD: 08/01/2020 [facility] Xhance Xhance 07/18/2020 12:00:00 AM EDT active [facility] ([facility], ) 93 mcg/actuation 07/18/2020 12:00:00 AM EDT [...] 12:00:00 AM EDT ORAL active M EDENT ([facility]) 25 mg 07/04/2020 12:00:00 AM EDT capsule,extended [...] 12:00:00 AM EDT ORAL active [facility] ( [facility]) 25 mg 04/02/2020 12:00:00 AM EDT capsule,extended releas e 24hr 30 TAKE ONE CAPSULE BY MOUTH EVERY DAY MAXIMUM DAILY DOSE = 1 CAPSULE TAKE ONE CAPSULE BY MOUTH EVERY DAY MAXIMUM DAILY DOSE = 1 CAPSULE SOLD: 04/05/2020 [facility] Doxycycline Monohydrate 100 MG Oral Tablet Doxycycline Monoh ydrate 03/28/2020 12:00:00 AM EDT ORAL completed [facility] ([facility]) 100 mg 03/28/2020 12:00:00 AM EDT tablet 20 TAKE ONE TABLET BY MOUTH TWICE A DAY UNTIL GONE TAKE ONE TABLET BY MOUTH TWICE A DAY UNTIL GONE SOLD: 03/28/2020 [facility] cefdinir 300 MG Oral Capsule Cefdinir 03/26/2020 12:00:00 AM EDT ORAL completed [facility] ([facility]) 10 mg 03/26/2020 12:00:00 AM EDT tablet [...] 03/18/2020 12:00:00 AM EDT ORAL completed [facility] ([facility]) Fluticasone Propionate Fluticasone Propionate 03/18/2020 12:00:00 AM E DT active [facility] ([facility]) Chantix Continuing Month Jaswant Chantix Continuing Month Jaswant 12:00:00 AM EDT ORAL active [facility] ([facility]) 5-120 mg 03/18/2020 12:00:00 AM [...] Acetonide 02/19/2020 12:00:00 AM EDT active [facility] ([facility]) 0.1 % 02/19/2020 12:00:00 AM EDT cream [...] DAILY DOSE = 1 CAPSULE SOLD: 01/21/2020 [facility] 10 mg 01/01/2020 12:00:00 AM EST tablet 30 ONE TABLET BY MOUTH ONE HOUR BEFORE BEDTIME NEEDED TO HELP WITH SLEEPING MAXIMUM DAILY DOSE = ONE TABLET ONE TABLET BY MOUTH ONE HOUR BEFORE BEDTIME NEEDED TO HELP WITH SLEEPING MAXIMUM DAILY DOSE = ONE TABLET SOLD: 01/01/2020 [facility] 20 mg 12/14/2019 12:00:00 AM EST capsule,extended releas e 24hr 30 TAKE ONE CAPSULE BY MOUTH EVERY DAY MAXIMUM DAILY DOSE = 1 CAPSULE TAKE ONE CAPSULE BY MOUTH EVERY DAY MAXIMUM DAILY DOSE = 1 CAPSULE SOLD: 12/16/2019 [facility] 5 mg 12/14/2019 12:00:00 AM EST [...] DOSE = 1 SOLD: 11/27/2019 [facility] 20 mg 11/12/2019 12:00:00 AM EST capsule,extended [...] type / Coverage type Policy ID Covered alliance party ID Covered alliance party's relationship to mciknley Policy [place] Plan Information [facility] [id number] HU2 [id number] BCBS EMPIRE [place] [id number] HU2 [id number] [facility] [id number] HU2 [id number] [place] PPO 302/307 [id number] HU2 [id number] BCBS EMPIRE [facility] 303/803 [id number] DA [id number] [place] Plan Commercial [id number] Family Dependent [id number] [place] Plan Commercial [id number] Family Dependent [id number] EMPIRE PLAN [facility] U [id number] Spouse [id number] [place] Plan Commercial [id number] Family Dependent [id number] [place] Plan Commercial [id number] Family Dependent [id number] [place] Plan Commercial [id number] Family Dependent [id number] [facility] [place] Commercial [id number] Family Depende nt [id number] EXCELLUS BCBS B [id number] P VYS [id number] BCBS/Excellus Commercial Family Dependent Excellus Blue Ppo Health Maintenance Organization (HMO) Family Dependent Horizon BS [facility] Part B Self BS [place] Trad/MX Commercial Family Dependent EXCELLUS BCBS P [id number] S B [id number] BCBS [place] PPO 302/307 [id number] SP [id number] Results ID Date Data Source [id number] 12/30/2020 09:28:00 AM EST [facility] ([facility]) Name Value Range Interpretation Code Description Data Ondina rce(s) Supporting Document(s) Red Blood Count 4.94 10 4.00-5.40 Normal (applies to non-numeric results) [facility] ([facility]) White Blood Count 16.5 10 4.0-10.0 Above high normal [facility] ([facility]) Hematocrit 44.8 % 36.0-47.0 Normal (applies to non-numeric resul ts) [facility] ([facility]) Mean Corpuscular Volume 90.7 fl 80.0-96.0 Normal ( applies to non-numeric results) [facility] ([facility]) Hemoglobin 14.9 g/dL 12.0-15.5 Normal (applies to non-numeric resul ts) [facility] ([facility]) Red Cell Distribution Width 11.7 % 11.5-14.5 Norm al (applies to non-numeric results) [facility] ([facility]) Mean Corpuscular HGB Conc 33.3 g/dL 32.0-36.5 Normal (applies to non-numeric results) [facility] ([facility]) Mean Corpuscular Hemoglobin 30.2 pg 27.0-33.0 Norm al (applies to non-numeric results) [facility] ([facility]) Platelet Count, Automated 327 10 150-450 Normal (applies to non-numeric results) [facility] ([facility]) Neutrophils % 89.0 % 36.0-66.0 Above high normal MEDE NT ([facility]) [place] % 3.8 % 2.0-8.0 Normal (applies to non-numeric resul ts) [facility] ([facility]) Lymph % 6.6 % 24.0-44.0 Below low normal [facility] ( [facility]) Eos % 0.1 % 0.0-3.0 Normal (applies to non-numeric resul ts) [facility] ([facility]) Immature Granulocyte % 0.3 % 0-3.0 Normal (applies to non-n umeric results) [facility] ([facility]) Nucleated Red Blood Cell % 0.0 % 0-0 Normal (applies to n on-numeric results) [facility] ([facility]) Baso % 0.2 % 0.0-1.0 Normal (applies to non-numeric resul ts) [facility] ([facility]) [place] # 0.6 10 0.0-0.8 Normal (applies to non-numeric resul ts) [facility] ([facility]) Neutrophils # 14.7 10 1.5-8.5 Above high normal MEDE NT ([facility]) Lymph # 1.1 10 1.5-5.0 Below low normal [facility] ( [facility]) Baso # 0.0 10 0.0-0.2 Normal (applies to non-numeric resul ts) [facility] ([facility]) Eos # 0.0 10 0.0-0.5 Normal (applies to non-numeric resul ts) [facility] ([facility]) Procedure Social History Code Duration Value Status Description Data Source(s ) Smoking 04/02/2020 12:00:00 AM EDT Patient is a former smoker completed Patient is a former smoker [facility] ([facility]) Vital Signs ID Date Data Source UNK Name Value Range Interpretation Code Description Data Source(s) Body weight 77.112 kg 77.112 kg [facility] ([facility]) Body mass index (BMI) [Ratio] 31.1 kg/m2 31.1 k g/m2 [facility] ([facility]) Body weight 170.00 [lb_av] 170.00 [lb_av] [facility] Body height 62 [in_i] 62 [in_i] [facility] ([facility]) 5'2" [place] body weight 110 [lb_av] 110 [lb_av] [facility] Oxygen saturation in Arterial blood by Pulse oximetry 100 % 100 % [facility] ([facility]) Body temperature 98.5 [degF] 98.5 [degF] [facility] ([facility] Respiratory rate 16 /min 16 /min [facility] ( [facility]) Heart rate 95 /min 95 /min [facility] ([facility]) Body mass index (BMI) [Ratio] 32.6 kg/m2 32.6 k g/m2 [facility] ([facility]) Body weight 178.50 [lb_av] 178.50 [lb_av] [facility] ([facility]) Body height 62.0 [in_i] 62.0 [in_i] [facility] ([facility]) 5'2" Diastolic blood pressure 80 mm[Hg] 80 mm[Hg] [facility] ([facility]) Systolic blood pressure 118 mm[Hg] 118 mm[Hg] M [facility] ([facility]) [place] body weight 110 [lb_av] 110 [lb_av] [facility] T ([facility]) Oxygen saturation in Arterial blood by Pulse oximetry 98 % 98 % [facility] ([facility]) Body temperature 98.1 [degF] 98.1 [degF] [facility] ([facility]) Respiratory rate 16 /min 16 /min [facility] ( [facility]) Heart rate 80 /min 80 /min [facility] ([facility]) Body mass index (BMI) [Ratio] 32.6 kg/m2 32.6 k g/m2 [facility] ([facility]) Body weight 178.12 [lb_av] 178.12 [lb_av] [facility] T ([facility]) Body height 62.0 [in_i] 62.0 [in_i] [facility] ([facility]) 5'2" Diastolic blood pressure 86 mm[Hg] 86 mm[Hg] [facility] ([facility]) Systolic blood pressure 132 mm[Hg] 132 mm[Hg] M [facility] ([facility]) Oxygen saturation in Arterial blood by Pulse oximetry 96 % 96 % [facility] ([facility]) Body temperature 98.5 [degF] 98.5 [degF] [facility] ([facility]) Respiratory rate 18 /min 18 /min [facility] ( [facility]) Heart rate 93 /min 93 /min [facility] ([facility]) Body mass index (BMI) [Ratio] 33.3 kg/m2 33.3 k g/m2 [facility] ([facility]) Body weight 182.12 [lb_av] 182.12 [lb_av] [facility] T ([facility]) Body height 62.0 [in_i] 62.0 [in_i] [facility] ([facility]) 5'2" Diastolic blood pressure 72 mm[Hg] 72 mm[Hg] [facility] ([facility]) Systolic blood pressure 120 mm[Hg] 120 mm[Hg] [facility] ([facility])
[2020-12-30] MEDS ORDERED: ZOSYN 3.375GM VIAL (J2543) As Ordered ONE (11:34)
[2020-12-30] MEDS ORDERED: CIPROFLOXACIN/D5W 400 MG/200 ML BAG (J0744) As Ordered ONE (11:36)
[2020-12-30] MEDS: NS 1,000 ML IV SCH ×3 (11:49→16:19)
[2020-12-30 12:11] LABS: RSV AMPLIFICATION NEGATIVE (NEGATIVE)
[2020-12-30] MEDS ORDERED: ONDANSETRON 4MG/2ML VIAL As Ordered ONE ×3 (12:21→15:18)
[2020-12-30] MEDS ORDERED: MORPHINE 2 MG/ML 1ML VIAL (J2270) IV ONE (12:30)
[2020-12-30] MEDS ORDERED: MORPHINE 2 MG/ML 1ML VIAL (J2270) As Ordered ONE (12:34)
[2020-12-30] MEDS: ONDANSETRON 4MG/2ML VIAL IV PRN ×3 (12:36→15:27)
[2020-12-30] MEDS ORDERED: BUPIVACAINE/EPIN 0.25% 30 ML VIAL As Ordered ONE (13:42)
[2020-12-30] MEDS ORDERED: MIDAZOLAM INJ 2MG/2ML VIAL (J2250 PER 1MG) As Ordered ONE (14:28)
[2020-12-30] MEDS ORDERED: fentaNYL 250 MCG/5 ML INJECTION (J3010) As Ordered ONE (14:28)
[2020-12-30] MEDS ORDERED: propofoL 200 MG/20 ML VIAL As Ordered ONE (14:28)
[2020-12-30] MEDS ORDERED: ROCURONIUM BROMIDE 50 MG/5 ML VIAL As Ordered ONE (14:28)
[2020-12-30] MEDS ORDERED: dexameTHASONE 4 MG/ML 1ML VIAL (J1100 PER 1MG) As Ordered ONE (14:28)
[2020-12-30] MEDS ORDERED: LIDOCAINE 2% 100MG/5ML SDV (FOR ANES.) As Ordered ONE (14:28)
[2020-12-30] MEDS ORDERED: KETOROLAC 60MG 2ML VIAL As Ordered ONE (14:28)
[2020-12-30] MEDS ORDERED: SUGAMMADEX SODIUM 500 MG/5 ML VIAL (BRIDION) As Ordered ONE (14:28)
[2020-12-30] MEDS ORDERED: LR 1,000 ML IV SCH (15:00)
[2020-12-30] MEDS ORDERED: ONDANSETRON 4MG/2ML VIAL IV PRN (15:00)
[2020-12-30] MEDS ORDERED: fentaNYL 100 MCG/2 ML INJECTION (J3010) As Ordered ONE (15:19)
[2020-12-30] MEDS ORDERED: oxyCODONE 5MG TAB As Ordered ONE ×2 (15:19→15:55)
[2020-12-30] MEDS: oxyCODONE 5MG TAB PO PRN ×2 (15:22→15:56)
[2020-12-30] MEDS: fentaNYL 100 MCG/2 ML INJECTION (J3010) IV PRN ×4 (15:22→15:50)
[2020-12-30] MEDS ORDERED: KETOROLAC 30 MG/ML 1ML VIAL IV PRN (15:30)
--- NOTE | 2020-12-30 16:05 | RO ---
OPERATIVE NOTE DATE OF OPERATION: 12/30/2020 PREOPERATIVE DIAGNOSIS: Acute appendicitis. POSTOPERATIVE DIAGNOSIS: Acute appendicitis. PROCEDURE: Laparoscopic appendectomy. SURGEON: Joe Gorman MD BOARDING HOUSE MANAGER: None. ANESTHESIA: General. EBL: 5. COMPLICATIONS: None. INDICATIONS FOR PROCEDURE: The patient is a 40-year-old female who presents with right lower quadrant pain, found to have acute appendicitis. Recommendation was to proceed with laparoscopic appendectomy. Risks and benefits of the procedure not limited to but including bleeding, infection, hernia formation, damage to surrounding structures, and need for further surgery were discussed in detail with the patient, informed consent was obtained and procedure was planned. DESCRIPTION OF PROCEDURE: The patient was brought back to operating room 3. After sufficient sedation, the abdomen was sterilely prepped and draped. Next, timeout was done to confirm proper patient and proper procedure. Following that, a 5 mm incision was made in the left lower quadrant, and the Veress needle was inserted. The abdomen was then insufflated to 15 mmHg. Next the Veress needle was removed and a 5 mm Optiview port was used to gain access to the abdomen. Once the abdomen was entered, an 8 mm port was placed supraumbilically in the midline and another 5 mm port infraumbilically in the midline. The right lower quadrant was examined. The appendix was elevated. The mesoappendix was dissected free using the Enseal. Once the base of the appendix was reached, it was ligated with two PDS Endoloops. The appendix was then amputated off the cecum using the Enseal. The appendix was then placed inside of a 5 mm Endo Catch bag and the appendix was brought out through the umbilical port site. Once that was completed, the abdomen was desufflated. Skin incisions were closed with 4-0 Vicryl subcuticular sutures. The abdomen was cleaned and dried. Steri-Strips, 4x4 and tape were applied.
[2020-12-30] MEDS: NORCO, ANEXSIA 5/325MG TABLET (HYDROcodone/ACETAMINOPHEN) PO PRN (18:42)
[2020-12-30] MEDS: SENOKOT S TAB PO SCH (20:40)
[2020-12-30] MEDS: metroNIDAZOLE 500 MG in IV 1 EA IV SCH (20:41)
[2020-12-30] MEDS: CIPROFLOXACIN 400 MG in IV 1 EA IV SCH (23:28)
[2020-12-31 02:00] VITALS: BP 113/60
[2020-12-31] MEDS: NORCO, ANEXSIA 5/325MG TABLET (HYDROcodone/ACETAMINOPHEN) PO PRN ×2 (03:18→10:41)
[2020-12-31] MEDS: metroNIDAZOLE 500 MG in IV 1 EA IV SCH (05:29)
[2020-12-31 06:00] VITALS: BP 100/66
[2020-12-31 06:04] LABS: HEMATOCRIT 37.7 % (36.0-47.0); MEAN CORPUSCULAR HEMOGLOBIN 30.4 pg (27.0-33.0); MEAN CORPUSCULAR HGB CONC 32.6 g/dl (32.0-36.5); MEAN CORPUSCULAR VOLUME 93.1 fl (80.0-96.0); PLATELET COUNT, AUTOMATED 284 10^3/uL (150-450); RED BLOOD COUNT 4.05 10^6/uL (4.00-5.40)
[2020-12-31 06:20] LABS: HEMOGLOBIN 12.3 g/dl (12.0-15.5)
--- NOTE | 2020-12-31 09:06 | IPNPDOC ---
Text Note Date of Service The patient was seen on 12/31/20. NOTE General Surgery. Dr Gorman. The patient is a 40-year-old female who reported to the emergency department 12/30/20 with right-sided lower abdominal pain which had begun approximately 1:[address] abdomen/pelvis in the emergency department indicated early acute appendicitis, no abscess or perforation. The patient is POD 1 laparoscopic appendectomy. This morning, the patient states she is still having abdominal discomfort across the lower abdomen, she states it is more pronounced than last evening. Denies nausea or vomiting. States she is tolerating regular diet. She has been out of bed to the bathroom, no lightheadedness or dizziness. Last dose of [place] at 3 AM. Afebrile. VSS. MMM. Lungs clear to auscultation. S1-S2 regular rate and rhythm. Abdomen is soft, tenderness with palpation across the lower abdomen area right greater than left. Incisions with dressings intact, no drainage. BS present. Extremities, no edema. 5050/750, +4300 WBC this morning is noted to be 19.0, this is increased from 16.5 on admission yesterday. A/P. Appendicitis/POD 1 laparoscopic appendectomy. Afebrile. Tolerating regular diet. The patient is reporting lower abdominal discomfort. White blood cell count is noted to be 19.0 compared with 16.5 on admission yesterday. Continue IV Cipro/Flagyl. Continue pain control. The patient is reviewed with Dr. Gorman, plan is to recheck CBC at noon today. Continue to monitor. VS,Fishbone, I+O VS, Fishbone, I+O Laboratory Tests 12/30/20 09:28 12/31/20 05:28 Vital Signs Date Time Temp Pulse Resp B/P (MAP) Pulse Ox O2 Delivery O2 Flow Rate FiO2 12/31/20 06:00 98.4 80 16 100/66 (77) 95 Room Air I&O- Last 24 Hours up to 6 AM 12/31/20 06:00 Intake Total 5850 ml Output Total 1125 ml Balance 4725 ml Treasure Sr Dec 31, 2020 09:05
[2020-12-31 10:00] VITALS: BP 103/64
[2020-12-31] MEDS: SENOKOT S TAB PO SCH (10:41)
[2020-12-31] MEDS: CIPROFLOXACIN 400 MG in IV 1 EA IV SCH (10:41)
[2020-12-31 12:03] LABS: HEMATOCRIT 36.5 % (36.0-47.0); HEMOGLOBIN 11.8 g/dl (12.0-15.5); MEAN CORPUSCULAR HEMOGLOBIN 29.8 pg (27.0-33.0); MEAN CORPUSCULAR HGB CONC 32.3 g/dl (32.0-36.5); MEAN CORPUSCULAR VOLUME 92.2 fl (80.0-96.0); PLATELET COUNT, AUTOMATED 247 10^3/uL (150-450); RED BLOOD COUNT 3.96 10^6/uL (4.00-5.40)
[2020-12-31] MEDS ORDERED: HYDR-3715 PO (12:11)
[2020-12-31] MEDS ORDERED: CIPR-249 PO (12:11)
[2020-12-31] MEDS ORDERED: METR-265 PO (12:11)
--- NOTE | 2021-01-01 16:26 | DSES ---
DISCHARGE SUMMARY DATE OF ADMISSION: 12/30/2020 DATE OF DISCHARGE: 12/31/2020 ADMITTING DIAGNOSIS: Appendicitis. DISCHARGE DIAGNOSIS: Appendicitis. HOSPITAL COURSE: The patient is a 40-year-old female. She presented on the with appendicitis. She was brought to the Operating Room for a laparoscopic appendectomy. Postop she was doing well. She was tolerating a diet, ambulating okay. The pain was improved. Her white count did go up slightly in the next morning from 16.5 to 19. I kept her for a few hours, repeated the labs at noon which were back down to 15. She has no nausea or vomiting, no fevers. She is ambulating and urinating okay. PLAN: The plan is to discharge home. I will send her home with some p.o. antibiotics as well as some pain control. All of her questions are answered. She can shower starting tonight. No bath for 5 days. No lifting more than 20 pounds for 2 weeks. She will follow up with me in 2 weeks and can call the office with any questions between now and then.
== END 2020-12-31 13:16 | disposition home or self-care (01) ==
LOC: M ED 08:59 → M SDC 09:00 → M MSPAV 12:49 → M SDC 12-31 13:16
PROVIDERS: ATTEND Surgery
DX: K35.890 Other acute appendicitis without perforation or gangrene (principal); F17.218 Nicotine dependence, cigarettes, with other nicotine-induced disorders
CPT/HCPCS: 36415; 44970; 74177; 80048; 80076; 81001; 83690; 85025; 85027; 87631; 88304; 96365; 96366; 96367; 96375; 99284; J0744; J1100; J1885; J2250; J2270; J2405; J3010; Q9967

== ENCOUNTER → 2024-08-22 | Outpatient (CLI) | payer BC ==
[~2024-08-22] MED LIST: ADDE1TAB14 PO; ADDE25CA PO; CIPR-249 PO; HYDR-3715 PO; METR-265 PO; ZOLP10TA2 PO
== END ==
LOC: M WHC 08:00
PROVIDERS: ATTEND Nurse Practitioner Family
DX: Z12.31 Encounter for screening mammogram for malignant neoplasm of breast (principal); R92.313 Mammographic fatty tissue density, bilateral breasts

== ENCOUNTER → 2024-08-22 | Outpatient (CLI) | payer BC ==
[2024-08-22 13:10] LABS: BASO # 0.1 10^3/uL (0.0-0.2); BASO % 0.8 % (0.0-1.0); EOS # 0.2 10^3/uL (0.0-0.5); HEMATOCRIT 45.9 % (36.0-47.0); HEMOGLOBIN 15.2 g/dl (12.0-15.5); LYMPH # 2.1 10^3/uL (1.5-5.0); LYMPH % 35.8 % (24.0-44.0); MEAN CORPUSCULAR HEMOGLOBIN 30.5 pg (27.0-33.0); MEAN CORPUSCULAR HGB CONC 33.1 g/dl (32.0-36.5); MEAN CORPUSCULAR VOLUME 92.2 fl (80.0-96.0); MONO # 0.6 10^3/uL (0.0-0.8); MONO % 9.4 % (2.0-8.0); NEUTROPHILS % 49.7 % (36.0-66.0); PLATELET COUNT, AUTOMATED 330 10^3/uL (150-450); RED BLOOD COUNT 4.98 10^6/uL (4.00-5.40)
[2024-08-22 13:11] LABS: ALBUMIN 3.8 G/DL (3.2-5.2); ALKALINE PHOSPHATASE 82 U/L (46-116); ALT/SGPT 23 U/L (7.0-40); AST/SGOT 13 U/L (<34); BILIRUBIN,TOTAL 1.1 MG/DL (0.3-1.2); BLOOD UREA NITROGEN 10 MG/DL (9-23); CALCIUM LEVEL 9.2 MG/DL (8.5-10.1); CARBON DIOXIDE LEVEL 29 MMOL/L (20-31); CHLORIDE LEVEL 106 MMOL/L (98-107); CHOLESTEROL LEVEL 233 MG/DL (<200); CHOLESTEROL RISK RATIO 2.69 (<5); CREATININE FOR GFR 0.61 MG/DL (0.55-1.30); GLOMERULAR FILTRATION RATE > 60.0 (>58); GLUCOSE, FASTING 82 MG/DL (60-100); HDL CHOLESTEROL 86.6 MG/DL (>40); LDL CHOLESTEROL 133.4 MG/DL (<100); NON-HDL-C 146.4 MG/DL; POTASSIUM SERUM 4.9 MMOL/L (3.5-5.1); SODIUM LEVEL 137 MMOL/L (136-145); TOTAL PROTEIN 6.7 G/DL (5.7-8.2); TRIGLYCERIDES LEVEL 65 MG/DL (<150)
[2024-08-22 13:13] LABS: FREE T4 1.28 NG/DL (0.89-1.76); THYROID STIMULATING HORMONE 1.513 uIU/ML (0.55-4.78)
[2024-08-22 13:30] LABS: HEMOGLOBIN A1c 5.2 % (4.0-6.0)
== END ==
LOC: M PLALAB 09:20
PROVIDERS: ATTEND Physician Assistant
DX: E55.9 Vitamin D deficiency, unspecified (principal); Z13.29 Encounter for screening for other suspected endocrine disorder; Z13.220 Encounter for screening for lipoid disorders

== ENCOUNTER → 2024-08-22 | Outpatient (REF) | payer BC ==
[2024-08-24 13:26] LABS: HPV APTIMA Not Detected (Not Detected)
== END ==
LOC: M SFHCWAGY 13:22
PROVIDERS: ATTEND Nurse Practitioner Family
DX: Z12.72 Encounter for screening for malignant neoplasm of vagina (principal); Z11.51 Encounter for screening for human papillomavirus (HPV)

== ENCOUNTER → 2025-08-26 | Outpatient (CLI) | payer BC ==
[~2025-08-26] MED LIST changes: +ZOLP10TA11 PO; -ZOLP10TA2 PO
== END ==
LOC: M WHC 08:34
PROVIDERS: ATTEND Nurse Practitioner Family
DX: Z12.31 Encounter for screening mammogram for malignant neoplasm of breast (principal)